=== PATIENT | female | born 1955 | race Caucasian/White ===

== ENCOUNTER → 2016-09-07 | Outpatient (CLI) | payer OTHER ==
--- NOTE | 2016-09-10 09:25 | MM ---
Reason for exam: screening (asymptomatic). Last mammogram was performed 1 year and 1 month ago. History: Patient is postmenopausal. Benign cyst aspiration of the left breast. Benign excisional biopsy of the left breast. Physical Findings: A clinical breast exam by your physician is recommended on an annual basis and results should be correlated with mammographic findings. MG Screening Mammo w CAD Bilateral CC and MLO view(s) were taken. Prior study comparison: August 16, 2015, bilateral MG screening mammo w CAD. November 06, 2013, bilateral digital screening mammo w/CAD. The breast tissue is heterogeneously dense. This may lower the sensitivity of mammography. Nodular density upper outer quadrant right breast. This finding is changed when compared with previous exams. ASSESSMENT: Incomplete: need additional imaging evaluation, BI-RAD 0 RECOMMENDATION: Special view mammogram and ultrasound of the right breast. [facility] will attempt to contact patient to return for supplemental views and ultrasound.
== END | disposition home or self-care (01) ==
LOC: RADMAMWWP 15:57
PROVIDERS: ATTEND Obstetrics & Gynecology
DX: Z12.31 Encounter for screening mammogram for malignant neoplasm of breast (principal)

== ENCOUNTER → 2016-09-14 | Outpatient (CLI) | payer OTHER, BC ==
--- NOTE | 2016-09-14 08:12 | USB ---
Reason for exam: additional evaluation requested from abnormal screening. History: Patient is postmenopausal. Benign cyst aspiration of the left breast. Benign excisional biopsy of the left breast. US Breast Workup Limited RT Right breast ultrasound demonstrates no cystic or solid lesion seen. BB at 10 o'clock. These results were verbally communicated with the patient and result sheet given to the patient on 09/14/16. ASSESSMENT: Negative, BI-RAD 1 RECOMMENDATION: Surgical consultation and stereotactic core biopsy of the right breast. Patient requests to set up surgical consult after PCP recieves report. PRELIMINARY REPORT CALLED AND FAXED TO DR. LARES ON AT 09/14/16 300/TMP.
--- NOTE | 2016-09-14 08:58 | MM ---
Reason for exam: additional evaluation requested from abnormal screening. Last mammogram was performed 1 year and 1 month ago. History: Patient is postmenopausal. Benign cyst aspiration of the left breast. Benign excisional biopsy of the left breast. Physical Findings: Nurse Summary: 2cm nodule in the right breast at 10 o'clock (nurse mm). MG Work Up Mamm w CAD RT Spot compression CC, spot compression MLO, and ML view(s) were taken of the right breast. Prior study comparison: August 16, 2015, bilateral MG screening mammo w CAD. November 06, 2013, bilateral digital screening mammo w/CAD. The breast tissue is heterogeneously dense. This may lower the sensitivity of mammography. Finding: There is a persistent 7 mm equal density (isodense), obscured round mass in the outer quadrant, middle position of the right breast, 8 cm from the nipple. No significant changes in finding since August 16, 2015 and November 06, 2013. These results were verbally communicated with the patient and result sheet given to the patient on 09/14/16. ASSESSMENT: Suspicious, BI-RAD 4 RECOMMENDATION: Surgical consultation and stereotactic core biopsy of the right breast. Patient request to set up surgical consult after PCP recieves report. PRELIMINARY REPORT CALLED AND FAXED TO ON AT 300/TMP.
== END | disposition home or self-care (01) ==
LOC: RADMAMWWP 06:51
PROVIDERS: ATTEND Obstetrics & Gynecology
DX: R92.8 Other abnormal and inconclusive findings on diagnostic imaging of breast (principal)
CPT/HCPCS: 76642; G0206